=== PATIENT | female | born 1985 | race Caucasian/White ===

== ENCOUNTER 2017-04-04 20:33 | Emergency (ER) | payer OTHER ==
--- NOTE | 2017-04-04 20:57 | C.PDOC ---
History Of Present Illness Patient presents to the ED with complaints of diffuse cramping abdominal pain since this morning. Patient is and denies any vaginal bleeding. Time Seen by Provider: 04/04/17 20:56 Chief Complaint (Nursing): Abdominal Pain History Per: Patient History/Exam Limitations: no limitations Onset/Duration Of Symptoms: Hrs (began this morning ) Current Symptoms Are (Timing): Still Present Severity: Mild Pain Scale Rating Of: 4 Location Of Pain/Discomfort: Diffuse Radiation Of Pain To:: None Quality Of Discomfort: Cramping Associated Symptoms: denies: Fever, Chills, Nausea, Vomiting, Diarrhea Exacerbating Factors: None Recent travel outside of the [place]: No Abnormal Vaginal Bleeding: No : 3 Para: 0 Past Medical History Reviewed: Historical Data, Nursing Documentation, Vital Signs Vital Signs: Last Vital Signs Temp 98.3 F 04/04/17 20:36 Pulse 86 04/04/17 20:36 Resp 20 04/04/17 20:36 BP 121/80 04/04/17 20:36 Pulse Ox 100 04/04/17 23:03 Family History: States: Unknown Family Hx - Social History Hx Alcohol Use: No Hx Substance Use: No - Immunization History Hx Tetanus Toxoid Vaccination: No Hx Influenza Vaccination: No Hx Pneumococcal Vaccination: No Review Of Systems Constitutional: Negative for: Fever, Chills Cardiovascular: Negative for: Chest Pain, Palpitations Respiratory: Negative for: Cough, Shortness of Breath Gastrointestinal: Positive for: Abdominal Pain (diffuse ). Negative for: Nausea , Vomiting, Diarrhea Genitourinary: Negative for: Vaginal Bleeding Musculoskeletal: Negative for: Back Pain Skin: Negative for: Rash Neurological: Negative for: Weakness Psych: Negative for: Anxiety Physical Exam - Physical Exam Appears: Non-toxic, No Acute Distress Skin: Warm, Dry Eye(s): bilateral: Normal Inspection Oral Mucosa: Moist Neck: Supple Chest: Symmetrical, No Deformity Cardiovascular: Rhythm Regular Respiratory: No Rales, No Rhonchi, No Wheezing Gastrointestinal/Abdominal: Soft, Tenderness (mild suprapubic tenderness ), No Distention, No Guarding, No Rebound Back: No CVA Tenderness Extremity: Normal ROM, No Tenderness Extremity: Bilateral: Normal Color And Temperature Neurological/Psych: Oriented x3 Gait: Steady ED Course And Treatment - Laboratory Results Result Diagrams: 04/04/17 21:39 04/04/17 21:39 O2 Sat by Pulse Oximetry: 100 (room air ) Pulse Ox Interpretation: Normal - CT Scan/US US TRANSVAGINAL Other Rad Studies (CT/US): Read By Radiologist, Radiology Report Reviewed CT/US Interpretation: IMPRESSION: Single intrauterine with no cardiac activity as described. Findings consistent with demise Disposition Counseled Patient/Family Regarding: Studies Performed, Diagnosis, Need For Followup - Disposition Referrals: Otto Selby MD [Staff Provider] - Disposition: HOME/ ROUTINE Disposition Time: 20:57 Condition: FAIR Instructions: Spontaneous Miscarriage (ED) - Clinical Impression Clinical Impression: demise - Scribe Statement The provider has reviewed the documentation as recorded by the Scribe Purvi Pimentel All medical record entries made by the Scribe were at my direction and personally dictated by me. I have reviewed the chart and agree that the record accurately reflects my personal performance of the history, physical exam, medical decision making, and the department course for this patient. I have also personally directed, reviewed, and agree with the discharge instructions and disposition.
[2017-04-04 21:42] LABS: BASO # 0.1 K/uL (0.0-0.2); BASO % 0.8 % (0.0-2.0); EOS # 0.1 K/uL (0.0-0.7); EOS % 1.6 % (0.0-4.0); HEMATOCRIT 42.5 % (34.0-47.0); LYMPH # 2.5 K/uL (1.0-4.3); LYMPH % 26.9 % (20.0-40.0); MEAN CORPUSCULAR HEMOGLOBIN 32.9 pg (27.0-31.0); MEAN CORPUSCULAR HGB CONC 33.6 g/dL (33.0-37.0); MEAN PLATELET VOLUME 7.9 fL (7.2-11.7); MONO # 0.6 K/uL (0.0-0.8); MONO % 6.9 % (0.0-10.0); RED CELL DISTRIBUTION WIDTH 12.9 % (11.5-14.5); WHITE BLOOD COUNT 9.4 K/uL (4.8-10.8)
[2017-04-04 22:04] LABS: CHLORIDE 107 mmol/L (98-107); POTASSIUM 3.5 mmol/L (3.6-5.2); SODIUM 139 mmol/L (132-148)
[2017-04-04 22:06] LABS: BILIRUBIN,TOTAL 0.6 mg/dL (0.2-1.3); GFR AFRICAN-AMERICAN > 60
[2017-04-04 22:07] LABS: ALB/GLOB RATIO 1.3 (1.0-2.1); ALKALINE PHOSPHATASE 68 U/L (38-126); ALT/SGPT 17 U/L (9-52); AST/SGOT 30 U/L (14-36); BLOOD UREA NITROGEN 3 mg/dL (7-17); CARBON DIOXIDE 18 mmol/L (22-30); GLUCOSE,RANDOM 101 mg/dL (65-105); TOTAL PROTEIN 7.2 g/dL (6.3-8.3)
[2017-04-04 22:08] LABS: CALCIUM 9.4 mg/dl (8.6-10.4)
[2017-04-04 22:59] LABS: RBC URINE < 1 /hpf (0-3); URINE BILIRUBIN NEGATIVE (NEGATIVE); URINE COLOR Yellow (YELLOW); URINE GLUCOSE (UA) NORMAL (Normal); URINE KETONE TRACE mg/dL (NEGATIVE); URINE LEUKOCYTE ESTERASE NEG Leu/uL (Negative); URINE PROTEIN NEGATIVE (NEGATIVE); URINE UROBILINOGEN NORMAL mg/dL (0.2-1.0); WBC URINE < 1 /hpf (0-5)
[2017-04-04 23:16] LABS: URINE BLOOD 1+ (NEGATIVE)
[2017-04-04 23:35] VITALS: BP 110/78; PULSE 88; RESP 16; TEMP 98.7; O2SAT 97
--- NOTE | 2017-04-05 10:21 | US ---
PROCEDURE: OB Pelvic Ultrasound HISTORY: abd pain, cramps COMPARISON: Stop this S FINDINGS: UTERUS: Single intrauterine gestation. CRL equivalent to 9 weeks 2 days gestatioin Gestational sac diameter equivalent to 7 weeks 2 days gestation age (Ultrasound estimated): 8 weeks 2 days Date of delivery (Ultrasound estimated) : 11/12/2017 Heart rate: 0 bpm. No detectable cardiac activity Sandra-gestational hemorrhage: Very small 3 mm yolk sac identified Uterus measures 8.2 x 4.7 x 6.2 cm. No mass CERVIX: 2.4 cm. Cervix closed. RIGHT OVARY: Measures 2.1 x 1.3 x 2.1 cm. No mass. Normal flow. LEFT OVARY: Measures 3.4 x 2.2 x 2.4 cm. No mass. Normal flow. Corpus luteum cyst, 2.3 x 1.5 x 1.5 FREE FLUID: None. OTHER FINDINGS: None. IMPRESSION: Intrauterine gestation of approximately 8 weeks 2 days gestational age without detectable cardiac activity. Probable demise. Very small subchorionic hemorrhage. Cervix closed. Incidental 2.3 cm left ovarian corpus luteum cyst. Preliminary interpretation of this examination was reported by [facility] at 10:59 p.m. on 04/04/2017. There is concurrence of this report with the preliminary interpretation.
== END 2017-04-04 23:32 | disposition home or self-care (01) ==
LOC: C.ER 20:33
DX: O02.1 Missed abortion (principal)